=== PATIENT | male | born 1980 | race African-American/Black ===

== ENCOUNTER 2022-10-30 08:39 | Emergency (ER) | payer MEDICAID ==
[~2022-10-30] VITALS: Ht 167.6 cm; Wt 64.0 kg
[2022-10-30 08:47] VITALS: BP 113/63
[2022-10-30] MEDS ORDERED: IBUPROFEN 600MG TABLET PO ONE (10:15)
[2022-10-30 10:43] LABS: CLARITY URINE CLEAR (CLEAR); COLOR URINE DARK YELLOW (YELLOW); KETONES URINE 1+ (NEGATIVE); LEUKOCYTE ESTERASE URINE 1+ (NEGATIVE); NITRITE URINE POSITIVE (NEGATIVE); OCCULT BLOOD URINE 1+ (NEGATIVE); PROTEIN URINE 1+ (NEGATIVE)
[2022-10-30] MEDS ORDERED: DOXY100C5 MT (12:18)
[2022-10-30] MEDS ORDERED: CEFTRIAXONE SODIUM 500 MG/VIAL IM ONE (12:30)
== END 2022-10-30 12:44 | disposition home or self-care (01) ==
LOC: ER 09:26
DX: N45.1 Epididymitis (principal)
CPT/HCPCS: 76870; 81003; 87086; 87186; 93976; 96372; 99285; J0696

== ENCOUNTER 2024-01-06 08:49 | Emergency (ER) | payer MEDICAID, OTHER ==
[~2024-01-06] VITALS: Ht 165.1 cm; Wt 59.0 kg
[~2024-01-06 08:49] MED LIST: DOXY100C5 MT
[2024-01-06 08:57] VITALS: O2SAT 100
[2024-01-06] MEDS ORDERED: IBUP-2029 MT (10:02)
[2024-01-06] MEDS ORDERED: T3 PO (10:04)
[2024-01-06 10:14] VITALS: BP 128/78; PULSE 76; RESP 16; TEMP 98.1
[2024-01-06] MEDS: IBUPROFEN 600MG TABLET PO ONE (10:15)
== END 2024-01-06 10:15 | disposition home or self-care (01) ==
LOC: ER 08:49
DX: S62.330A Displaced fracture of neck of second metacarpal bone, right hand, initial encounter for closed fracture (principal); S60.221A Contusion of right hand, initial encounter; X58.XXXA Exposure to other specified factors, initial encounter; Y93.89 Activity, other specified; Y92.89 Other specified places as the place of occurrence of the external cause; Y99.8 Other external cause status
CPT/HCPCS: 29125; 73130; 99283